=== PATIENT | female | born 1985 | race African-American/Black ===

== ENCOUNTER 2022-07-22 06:14 | Emergency (ER) | payer OTHER | END 2022-07-22 10:19 | disposition home or self-care (01) | LOC: JD.ED 06:14 | DX: S39.012A Strain of muscle, fascia and tendon of lower back, initial encounter (principal); W01.0XXA Fall on same level from slipping, tripping and stumbling without subsequent striking against object, initial encounter; Y99.0 Civilian activity done for income or pay | CPT/HCPCS: 72100; 72100-26; 72190; 72190-26; 81025; 99283 ==